=== PATIENT | male | born 1950 | race Caucasian/White ===

== ENCOUNTER 2016-07-29 03:33 | Emergency (ER) | payer OTHER ==
[~2016-07-29] VITALS: Ht 690.8 cm; Wt 90.7 kg
[~2016-07-29 03:33] MED LIST: ADVAIR 250/501 EA INH; ALLOPURINOL300 MG PO; AMBIEN10 M1 PO; ANUSOL HC30 GM PO; ANUSOL-HC25 MG RC; BP MED; CEFTIN500 MG PO; COLCHICINE0.5 MG PO; COLCRYS0.6 MG PO; CYCLOBENZAPRINE10 MG PO; DICLOFENAC POTA50 MG PO; DYAZIDE 25 MG-31 CAP PO; EC NAPROSYN500 MG PO; ESIDREX,ORETI12.5 MG PO; FELODIPINE5 MG PO; FERROUS SULFAT324 MG PO; FLAGYL500 MG PO; FOLIC ACID1 MG PO; HYDROCODONE BIT1 T11 PO; KEFLEX500 MG PO; LASIX40 MG PO; LISINOPRIL/HCTZ1 TA1 PO; LOMOTIL 0.025 M1 TA1 PO; LOPID600 MG PO; MULTIVITAMIN1 CTB PO; PREDNISONE10 MG PO; PRILOSEC20 MG PO; SINGULAIR10 MG PO; VICODIN 5/500 505 MG PO; VOLTAREN50 M1 PO; Vicodin 5/500 505 MG PO; ZESTRIL,PRINIVI20 MG PO
[2016-07-29] MEDS ORDERED: NAPROSYN500 MG PO (04:55)
== END 2016-07-29 04:59 | disposition home or self-care (01) ==
LOC: ED 03:33
DX: M19.90 Unspecified osteoarthritis, unspecified site (principal); Z88.5 Allergy status to narcotic agent; Z88.6 Allergy status to analgesic agent; Z79.899 Other long term (current) drug therapy; Z96.642 Presence of left artificial hip joint

== ENCOUNTER 2016-08-13 11:25 | Emergency (ER) | payer OTHER ==
[~2016-08-13] VITALS: Ht 182.8 cm; Wt 90.7 kg
[~2016-08-13 11:25] MED LIST changes: +NAPROSYN500 MG PO; +PRILOSEC20 M1 PO; -PRILOSEC20 MG PO
[2016-08-13] MEDS ORDERED: ZESTRIL20 MG PO (11:32)
[2016-08-13] MEDS ORDERED: VENTOLIN H0.09 MG/AC INH (11:33)
[2016-08-13] MEDS ORDERED: VENTOLIN 02.5 MG/3 M INH (11:34)
[2016-08-13] MEDS ORDERED: VIBRAMYCIN100 MG PO (12:56)
[2016-08-13] MEDS ORDERED: PREDNISONE10 MG PO (12:56)
== END 2016-08-13 13:08 | disposition home or self-care (01) ==
LOC: ED 11:25
DX: J44.1 Chronic obstructive pulmonary disease with (acute) exacerbation (principal); M19.90 Unspecified osteoarthritis, unspecified site; Z88.6 Allergy status to analgesic agent; Z79.899 Other long term (current) drug therapy

== ENCOUNTER → 2016-09-04 | Outpatient (CLI) | payer OTHER ==
[~2016-09-04] MED LIST changes: +VENTOLIN 02.5 MG/3 M INH; +VENTOLIN H0.09 MG/AC INH; +VIBRAMYCIN100 MG PO; +ZESTRIL20 MG PO
== END | disposition home or self-care (01) ==
LOC: CT 08-31 13:00 → LAB 10:14 → CT 11:00
PROVIDERS: Internal Medicine Critical Care Medicine
DX: J44.9 Chronic obstructive pulmonary disease, unspecified (principal); R91.8 Other nonspecific abnormal finding of lung field; R06.02 Shortness of breath; R05 Cough; Z87.891 Personal history of nicotine dependence

== ENCOUNTER → 2016-09-11 | Day surgery (SDC) | payer OTHER ==
[~2016-09-11] VITALS: Ht 182.8 cm; Wt 88.5 kg
--- NOTE | ~2016-09-11 | PROC NOTE ---
[place], [place] PROCEDURE NOTE NAME: ZOLTAN BETANCOURT UNIT #: [id number] ROOM: DOCTOR: ELVIE SORIANO MD,PABLO BIRTHDATE: [birth year] DOS: 09/11/2016 PREOPERATIVE DIAGNOSIS: Left upper lung mass. POSTOPERATIVE DIAGNOSIS: Left upper lung mass. PROCEDURE: Fiberoptic bronchoscopy with transbronchial biopsy of the left upper lung mass. PROCEDURE DESCRIPTION: Informed consent obtained from the patient. The patient brought to the OR and placed in supine position. Conscious sedation was administered by the Anesthesia Department. After achieving appropriate sedation, airway introduced into the mouth. Bronchoscope advanced into the airway into laryngeal area. Epiglottis and vocal cords were seen. The vocal cords moving symmetrically with movements. The bronchoscope advanced through the vocal cord. The tracheal lumen noted moderate amount of mucoid secretion, which was suctioned out the fareed level. The fareed noted sharp. Left upper, lower and lingular bronchial openings were identified. Right upper, right middle, right lower lobe bronchi were also examined. Moderate amount of mucus impaction noted for this patient, which had been suctioned out with the help of normal saline wash without any difficulty. There were no endobronchial obstructive lesions. With the help of fluoroscopy, the patient's left upper lung biopsy of the procedure subsegment was completed without any complications. There was not much blood loss. The procedure was completed without difficulty. Postoperative findings will be discussed with the patient as an outpatient. PABLO BERMEO MD CM:PROCNOTE:PROCEDURE NOTE [id number] PABLO SORIANO MD
[2016-09-11 08:15] VITALS: BP 106/75
[2016-09-11 09:25] VITALS: BP 95/78
[2016-09-11 09:40] VITALS: BP 101/64
[2016-09-11 09:53] VITALS: BP 93/49
[2016-09-12 15:09] LABS: ACID FAST SPEC PROCESSING Concentration (.)
== END | disposition home or self-care (01) ==
LOC: SDC 09-08 11:45
PROVIDERS: Internal Medicine Critical Care Medicine
DX: R91.8 Other nonspecific abnormal finding of lung field (principal); I10 Essential (primary) hypertension; J44.9 Chronic obstructive pulmonary disease, unspecified; K21.9 Gastro-esophageal reflux disease without esophagitis; Z98.890 Other specified postprocedural states; Z88.8 Allergy status to other drugs, medicaments and biological substances; Z86.14 Personal history of Methicillin resistant Staphylococcus aureus infection; M10.9 Gout, unspecified; Z82.49 Family history of ischemic heart disease and other diseases of the circulatory system

== ENCOUNTER → 2016-09-19 | Outpatient (CLI) | payer OTHER ==
[2016-09-19] VITALS (7 sets, daily range): BP systolic 93–103; BP diastolic 65–74
[2016-09-19 12:42] LABS: INTERNATIONAL NORM RATIO 1.1 (2.0-3.5); PROTHROMBIN TIME 11.9 SECONDS (9.0-12.4)
== END | disposition home or self-care (01) ==
LOC: EDSTATUS 13:00 → SDC 13:00
PROVIDERS: Internal Medicine Critical Care Medicine
DX: R91.8 Other nonspecific abnormal finding of lung field (principal); M79.89 Other specified soft tissue disorders; J84.10 Pulmonary fibrosis, unspecified; I96 Gangrene, not elsewhere classified; K21.9 Gastro-esophageal reflux disease without esophagitis; K29.50 Unspecified chronic gastritis without bleeding; L98.499 Non-pressure chronic ulcer of skin of other sites with unspecified severity; M16.12 Unilateral primary osteoarthritis, left hip; M87.9 Osteonecrosis, unspecified

== ENCOUNTER → 2016-10-02 | Outpatient (CLI) | payer OTHER ==
[2016-10-03 06:10] LABS: IMMUNOGLOBULIN IgE 002170 206 IU/mL (0-100)
[2016-10-03 16:11] LABS: ANGIOTENSIN-CONVERTING ENZYME 4 U/L (14-82)
[2016-10-04 00:04] LABS: IGG SUBCLASS 1 862 mg/dL (248-810); IGG SUBCLASS 2 480 mg/dL (130-555); IGG SUBCLASS 3 176 mg/dL (15-102); IGG SUBCLASS 4 174 mg/dL (2-96)
== END | disposition home or self-care (01) ==
LOC: LAB 09:59
PROVIDERS: Internal Medicine Critical Care Medicine
DX: J84.9 Interstitial pulmonary disease, unspecified (principal)

== ENCOUNTER → 2016-10-06 | Outpatient (CLI) | payer OTHER ==
[2016-10-07 08:10] LABS: RHEUMATOID ARTHRITIS FACTOR 21.1 IU/mL (0.0-13.9)
[2016-10-07 09:06] LABS: IMMUNOGLOBULIN IgE 002170 200 IU/mL (0-100)
[2016-10-09 14:07] LABS: IGG SUBCLASS 1 831 mg/dL (248-810); IGG SUBCLASS 2 451 mg/dL (130-555); IGG SUBCLASS 3 154 mg/dL (15-102); IGG SUBCLASS 4 179 mg/dL (2-96)
[2016-10-09 16:11] LABS: ANGIOTENSIN-CONVERTING ENZYME 6 U/L (14-82)
[2016-10-09 22:05] LABS: BLASTOMYCES ANTIBODY 164293 Negative (Neg:<1:1)
== END | disposition home or self-care (01) ==
LOC: LAB 07:42
PROVIDERS: Internal Medicine Critical Care Medicine
DX: J84.9 Interstitial pulmonary disease, unspecified (principal)

== ENCOUNTER → 2016-11-03 | Outpatient (CLI) | payer OTHER ==
[2016-11-03 07:55] LABS: BASO % 0.4 % (0.0-1.0); EOS # 0.4 10*3/uL (0.0-0.4); EOS % 4.6 % (1.0-4.0); HEMATOCRIT 29.6 % (42.0-52.0); HEMOGLOBIN 8.8 g/dl (14.0-18.0); LYMPH # 1.3 10*3/uL (1.3-4.4); LYMPH % 14.4 % (27.0-41.0); MEAN CELL VOLUME 91.9 fl (80.0-94.0); MEAN CORPUSCULAR HGB 27.3 pg (27.0-31.0); MEAN CORPUSCULAR HGB CONC 29.7 g/dl (33.0-37.0); MEAN PLATELET VOLUME 10.4 fl (9.6-12.3); MONO % 10.3 % (3.0-9.0); NEUT # 6.5 10*3/uL (2.3-7.9); NEUT % 69.8 % (47.0-73.0); PLATELET COUNT AUTOMATED 400 10*3/uL (130-400); RED BLOOD COUNT 3.22 10*6/uL (4.50-5.90); RED CELL DISTRI WIDTH 14.9 % (0-14.5); WHITE BLOOD COUNT 9.3 10*3/uL (4.8-10.8)
[2016-11-03 08:09] LABS: BILIRUBIN NEGATIVE (NEGATIVE); BLOOD TRACE-LYSED (NEGATIVE); CLARITY CLEAR (CLEAR); COLOR YELLOW (YELLOW); GLUCOSE NEGATIVE (NEGATIVE); KETONE NEGATIVE (NEGATIVE); LEUKO ESTERASE NEGATIVE (NEGATIVE); NITRITE NEGATIVE (NEGATIVE); PH 5.5 (5.0-9.0); SPECIFIC GRAVITY 1.015 (1.005-1.030); UROBILINOGEN 0.2 E.U./dl (0.2-1.0)
[2016-11-03 08:35] LABS: ALBUMIN 2.5 gm/dl (3.1-4.5); CREATININE 4.05 mg/dL (0.70-1.30); MAGNESIUM 2.6 mg/dL (1.5-2.1); POTASSIUM 5.8 mmol/L (3.5-5.1); URIC ACID 6.5 mg/dL (3.5-7.2)
[2016-11-03 09:25] LABS: VITAMIN D, 25-HYDROXY 39.3 ng/mL (30-100)
[2016-11-03 09:33] LABS: BACTERIA 2+
== END | disposition home or self-care (01) ==
LOC: LAB 07:30
PROVIDERS: Internal Medicine Nephrology
DX: N18.3 Chronic kidney disease, stage 3 (moderate) (principal); N25.81 Secondary hyperparathyroidism of renal origin; M10.9 Gout, unspecified

== ENCOUNTER → 2016-12-25 | Outpatient (CLI) | payer OTHER ==
[2016-12-25 08:34] LABS: BILIRUBIN NEGATIVE (NEGATIVE); BLOOD TRACE-INTACT (NEGATIVE); CLARITY CLEAR (CLEAR); COLOR YELLOW (YELLOW); GLUCOSE NEGATIVE (NEGATIVE); KETONE NEGATIVE (NEGATIVE); LEUKO ESTERASE NEGATIVE (NEGATIVE); NITRITE NEGATIVE (NEGATIVE); PH 5.5 (5.0-9.0); SPECIFIC GRAVITY 1.015 (1.005-1.030); UROBILINOGEN 0.2 E.U./dl (0.2-1.0)
[2016-12-25 08:42] LABS: BASO % 0.3 % (0.0-1.0); EOS # 0.6 10*3/uL (0.0-0.4); EOS % 5.9 % (1.0-4.0); HEMATOCRIT 27.9 % (42.0-52.0); HEMOGLOBIN 8.4 g/dl (14.0-18.0); LYMPH # 1.5 10*3/uL (1.3-4.4); MEAN CELL VOLUME 89.4 fl (80.0-94.0); MEAN CORPUSCULAR HGB 26.9 pg (27.0-31.0); MEAN CORPUSCULAR HGB CONC 30.1 g/dl (33.0-37.0); MEAN PLATELET VOLUME 9.7 fl (9.6-12.3); MONO # 1.1 10*3/uL (0.1-1.0); MONO % 10.3 % (3.0-9.0); NEUT # 7.5 10*3/uL (2.3-7.9); NEUT % 68.9 % (47.0-73.0); PLATELET COUNT AUTOMATED 566 10*3/uL (130-400); RED BLOOD COUNT 3.12 10*6/uL (4.50-5.90); RED CELL DISTRI WIDTH 15.9 % (0-14.5); WHITE BLOOD COUNT 10.9 10*3/uL (4.8-10.8)
[2016-12-25 08:47] LABS: BACTERIA TRACE; COARSE GRANULAR CAST 0-2; MUCOUS TRACE
[2016-12-25 09:16] LABS: ALBUMIN 2.6 gm/dl (3.1-4.5); POTASSIUM 3.9 mmol/L (3.5-5.1)
[2016-12-25 09:18] LABS: CREATININE 2.29 mg/dL (0.70-1.30); PHOSPHOROUS 2.6 mg/dL (2.5-4.9)
[2016-12-25 12:32] LABS: PTH INTACT < 5.5 pg/mL (14.0-72.0)
== END | disposition home or self-care (01) ==
LOC: LAB 08:11
PROVIDERS: Internal Medicine Nephrology
DX: N18.3 Chronic kidney disease, stage 3 (moderate) (principal); N25.81 Secondary hyperparathyroidism of renal origin; M10.9 Gout, unspecified; Z79.899 Other long term (current) drug therapy

== ENCOUNTER → 2017-01-04 | Day surgery (SDC) | payer OTHER ==
[2017-01-03 09:16] LABS: BILIRUBIN NEGATIVE (NEGATIVE); BLOOD TRACE-INTACT (NEGATIVE); CLARITY CLEAR (CLEAR); COLOR YELLOW (YELLOW); GLUCOSE NEGATIVE (NEGATIVE); KETONE NEGATIVE (NEGATIVE); LEUKO ESTERASE NEGATIVE (NEGATIVE); NITRITE NEGATIVE (NEGATIVE); SPECIFIC GRAVITY 1.015 (1.005-1.030); UROBILINOGEN 0.2 E.U./dl (0.2-1.0)
[2017-01-03 09:17] LABS: BASO % 0.3 % (0.0-1.0); EOS # 0.2 10*3/uL (0.0-0.4); EOS % 1.8 % (1.0-4.0); HEMATOCRIT 28.6 % (42.0-52.0); HEMOGLOBIN 8.5 g/dl (14.0-18.0); LYMPH % 9.4 % (27.0-41.0); MEAN CELL VOLUME 89.7 fl (80.0-94.0); MEAN CORPUSCULAR HGB 26.6 pg (27.0-31.0); MEAN CORPUSCULAR HGB CONC 29.7 g/dl (33.0-37.0); MEAN PLATELET VOLUME 9.7 fl (9.6-12.3); MONO # 0.3 10*3/uL (0.1-1.0); MONO % 2.7 % (3.0-9.0); NEUT # 9.3 10*3/uL (2.3-7.9); NEUT % 85.3 % (47.0-73.0); PLATELET COUNT AUTOMATED 474 10*3/uL (130-400); RED BLOOD COUNT 3.19 10*6/uL (4.50-5.90); RED CELL DISTRI WIDTH 15.9 % (0-14.5); WHITE BLOOD COUNT 10.9 10*3/uL (4.8-10.8)
[2017-01-03 09:41] LABS: CREATININE 2.32 mg/dL (0.70-1.30); POTASSIUM 4.6 mmol/L (3.5-5.1)
[2017-01-03 09:46] LABS: ACT PARTIAL THROMBO TIME 25.3 SECONDS (20.8-31.5); INTERNATIONAL NORM RATIO 1.1 (2.0-3.5)
[2017-01-03 10:57] LABS: BACTERIA TRACE
[~2017-01-04] VITALS: Ht 182.8 cm; Wt 78.9 kg
--- NOTE | ~2017-01-04 | PROC NOTE ---
[place], [place] PROCEDURE NOTE NAME: ZOLTAN BETANCOURT [facility] #: [id number] UNIT #: [id number] ROOM: DOCTOR: ANSLEY TOLLIVER MD BIRTHDATE: [birth year] DOS: 01/04/2017 PREOPERATIVE DIAGNOSIS: Left lung cancer. POSTOPERATIVE DIAGNOSIS: Left lung cancer. PROCEDURE: Right internal jugular MediPort placement. SURGEON: Ansley Tolliver M.D. ALLERGIST/MD: ELVIA. ANESTHESIA: MAC with local. INDICATIONS: This is a 66-year-old gentleman who is here for a MediPort placement for chemotherapy. The procedure and its complications were explained to the patient in detail preoperatively. Complications that were discussed included but were not limited to bleeding, hemothorax, pneumothorax, infection, and prolonged pain. He agreed to proceed. DESCRIPTION OF PROCEDURE: After identifying the patient, the patient was brought to the operating suite and laid in the supine position. After time-out procedure was called, IV sedation was administered and the parts were then painted and draped in the usual sterile fashion. With the help of an ultrasound machine, the right internal jugular vein was accessed with the help of Seldinger technique and a guidewire was placed. A pocket was created 2 cm below the right clavicle in a transverse fashion after injecting local anesthesia. Through this port site, the catheter was passed over an introducer to the area of the neck where the guidewire was placed. The sheath and dilator was passed over the guidewire and the guidewire was removed. Through the sheath, the catheter was placed and was found to be in good position on fluoroscopy. The catheter was then cut to size and the port was attached and fixed to the underlying chest wall with the help of Prolene sutures. Thereafter, the MediPort was accessed and it was found to have adequate flow and good blood return. The subcutaneous tissue was then approximated with the help of 3-0 Vicryl and the skin edges were approximated with the help of 4-0 Vicryl in a subcuticular fashion. Dressing was placed. The patient tolerated the procedure well and was taken to the recovery room in stable fashion. A chest x-ray was ordered for adequate placement. Dr. Ansley Tolliver, the attending surgeon, was present throughout the operating case. [place], [place] PROCEDURE NOTE NAME: ZOLTAN BETANCOURT UNIT #: [id number] ROOM: DOCTOR: ANSLEY TOLLIVER MD BIRTHDATE: [birth year] Ansley Tolliver MD CM:PROCNOTE:PROCEDURE NOTE [id number] ANSLEY TOLLIVER MD
[2017-01-04 06:45] VITALS: BP 109/80
[2017-01-04 08:13] VITALS: BP 108/67
[2017-01-04 08:28] VITALS: BP 104/72
[2017-01-04 08:43] VITALS: BP 102/68
== END | disposition home or self-care (01) ==
LOC: SDC 01-01 09:30
PROVIDERS: Surgery
DX: C34.90 Malignant neoplasm of unspecified part of unspecified bronchus or lung (principal); J44.9 Chronic obstructive pulmonary disease, unspecified; Z87.891 Personal history of nicotine dependence; Z88.8 Allergy status to other drugs, medicaments and biological substances; I10 Essential (primary) hypertension; K21.9 Gastro-esophageal reflux disease without esophagitis; Z96.642 Presence of left artificial hip joint; Z86.14 Personal history of Methicillin resistant Staphylococcus aureus infection; M10.9 Gout, unspecified; Z82.49 Family history of ischemic heart disease and other diseases of the circulatory system

== ENCOUNTER 2017-01-23 17:33 | Inpatient (IN) | payer OTHER ==
[~2017-01-23] VITALS: Ht 182.9 cm; Wt 73.7 kg
--- NOTE | ~2017-01-23 | EKG ---
[place], [place] ELECTROCARDIOGRAM REPORT NAME: ZOLTAN BETANCOURT UNIT #: [id number] ROOM: 416 DOCTOR: ELVIE SORIANO MD,PABLO BIRTHDATE: [birth year] DOS: 01/23/2017 TIME: 6:55 p.m. With assessment of symptoms of shortness of breath. Normal sinus rhythm noted. Heart rate 96 beats per minute. Poor R-wave progression of the ____ lead was noted across the chest leads. PABLO BERMEO MD CM:EKGRPT:ELECTROCARDIOGRAM REPORT [id number] PABLO SORIANO MD
--- NOTE | ~2017-01-23 | CON ---
[place], [place] REPORT OF CONSULTATION NAME: ZOLTAN BETANCOURT [facility] #: [id number] UNIT #: [id number] ROOM: 416 DOCTOR: ELVIE SORIANO MDPABLO BIRTHDATE: [birth year] DOS: 01/24/2017 CONSULTATION REQUESTED BY: Hospitalist Service. REASON FOR CONSULTATION: For assessment of postobstructive pneumonia. HISTORY OF PRESENT ILLNESS: This is a 66-year-old white male who was very well known to me. The patient has established, diagnosed with large necrotic mass in the left upper lung as squamous cell cancer on 12/11/2016. He has been assessed by Dr. Ellis. The patient noted nonsurgical candidate because of advanced emphysema. The patient had chronic hypoxic respiratory failure and being treated with chemotherapy. He was told by Dr. Ellis for the patient to come to the hospital. The patient has been noted with anemia to get blood transfusion. He came into the hospital. The patient has been admitted to the hospital for the medical management of anemia. The patient was also described with finding of a postobstructive pneumonia. He does have symptoms of chronic cough with intermittent sputum expectoration yellowish in color, which was noted, unchanged in frequency and intensity. He denies any symptoms of acute shortness of breath. The patient does have symptoms of chronic shortness breath that occurs with exertion. He denies any symptoms of wheezing. Denies any symptoms of acute chest pain. There were no symptoms of hemoptysis. REVIEW OF SYSTEMS: CONSTITUTIONAL: He does have symptoms of fatigue and tiredness without symptoms, fever or chills. EYES: Denies any burning, redness, or tenderness. EARS, NOSE, THROAT SYMPTOMS: Denies sore throat, hoarseness, otalgia, postnasal drainage or epistaxis. CARDIOVASCULAR: Denies angina pain, edema or pain of the lower extremities. GASTROINTESTINAL: Dysphagia, nausea, vomiting, diarrhea, abdominal pain, hematemesis, melena, or hematochezia. GENITOURINARY SYMPTOMS: Dysuria, suprapubic pain, hematuria. MUSCULOSKELETAL: Acute joint pain, redness, or tenderness. SKIN: Denies lesions or rashes. CENTRAL NERVOUS SYSTEM: Denies dizziness, headache, diplopia, syncopal episodes. Remaining systems were reviewed and they were noted all negative. PAST MEDICAL HISTORY: 1. Chronic obstructive pulmonary disease/centrilobular emphysema which are noted severe diagnosis 08/22/2016. 2. History of bronchial asthma, uncomplicated moderate persistent severity. 3. Chronic hypoxic respiratory failure. 4. 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 5. History of osteoarthritis. 6. History of essential hypertension. PAST SURGICAL HISTORY: [place], [place] REPORT OF CONSULTATION NAME: ZOLTAN BETANCOURT UNIT #: [id number] ROOM: [facility] DOCTOR: PABLO FRANK MD BIRTHDATE: [birth year] 1. Fiberoptic bronchoscopy that was done on 10/2016. Bronchoscopy was done 09/11/2016. 2. CT-guided needle aspiration biopsy initially noted nondiagnostic 09/19/2016. Repeat biopsy 12/08/2016. The patient established a diagnosis of squamous cell lung cancer. 3. Right MediPort insertion for chemotherapy. SOCIAL HISTORY: The patient is , has 4 children. Denies history of alcohol use, illicit drug use. He has been noted history of tobacco usage of 18 years of 1.5 pack of cigarettes per day until 2001. FAMILY HISTORY: Father at the age of 8383 years old from complication of myocardial infarction. Mother at 71 years old from complications of acute stroke. HOME MEDICATIONS: Which were listed on admission as use of allopurinol, ferrous sulfate, Advair 250/50, gemfibrozil, Singulair, multivitamin, omeprazole, albuterol sulfate with the nebulizer use as well oxygen supplementation 4 liter nasal cannula. DRUG ALLERGY HISTORY: Noted as allergy. 1. MORPHINE SULFATE. 2. TRAMADOL. PHYSICAL EXAMINATION: GENERAL: This is a 66-year-old white male, currently comfortably resting on the bed without any acute distress. Height of 6 feet, weight of 162 pounds, BMI 22. VITAL SIGNS: The patient shows a normal temperature since admission in the last 24 hour, respiratory rate of 18-20, heart rate of 189, blood pressure 128/80-116/79. HEENT: Examination shows head was atraumatic. Eyes nonicterus. NECK: Supple. CARDIOVASCULAR: S1, S2 is audible. LUNGS: The patient noted moderate decreased breath sounds without any wheeze or crackle. Breaths are noted decreased more on the left than the right side. ABDOMEN: Soft, flat, nontender, bowel sounds present. EXTREMITIES: No edema, clubbing, cyanosis. CENTRAL NERVOUS SYSTEM: Cranial nerves 2-12 intact. No focal deficit. MUSCULOSKELETAL: No deformities. SKIN: No lesions or rashes. LABORATORY DATA: The CBC that was done on 01/23/2017, WBC count 6.6, hemoglobin 6.5, hematocrit 20.6, platelet count of 941,000. CBC on the 4th, WBC count normal, hemoglobin 6.5, hematocrit 20.6, platelet count 751,000. CBC this morning: WBC count of 4000, hemoglobin 7.1, hematocrit 22.3, platelet count 666,000. After the packed RBC blood transfusion, which was given yesterday of 1 pack. PT/INR noted 1.2. CMP this morning, BUN 55, creatinine 3.0. Sodium 134. The CMP which were done on 01/22/2017, BUN 31, creatinine 3.23. Chest x-ray of the patient, 2-view, which was done shows evidence of mass lesion noted in the left upper lung. MediPort noted in place in the right chest. Lateral view does [place], [place] REPORT OF CONSULTATION NAME: ZOLTAN BETANCOURT UNIT #: [id number] ROOM: 416 DOCTOR[facility] BIRTH[facility]: [birth year] show the best assessment with the patient's current left upper lung mass consolidation, which appeared to have a cavitation known previously as well. The cavitation has developed as compared with the chest x-ray of 01/02/2017. IMPRESSION: 1. The patient who had been currently admitted to the hospital noted with history of chronic obstructive pulmonary disease and chronic hypoxic respiratory failure without evidence of acute exacerbation. The patient does have a clinical suspicion of current finding consistent with any pneumonia at the present time. 2. Thrombocytosis secondary to underlying malignancy was also noted. 3. Anemia of the patient most likely related to chemotherapy or other etiologies with about 1 blood transfusion appropriate increase in hemoglobin and hematocrit. 4. The patient with a history of essential hypertension as well. 5. History of bronchial asthma, uncomplicated moderate persistent stable as well. 6. Chronic cough. 7. Chronic kidney disease. History of essential hypertension managed by the nephrology services. PLAN OF TREATMENT: At this time, the patient would not require any intervention such as bronchoscopy or other intervention. If the cough remains persistent does not resolve, certainly he will benefit from therapeutic bronchoscopy later. The patient was also known with history of chronic kidney disease. The patient with stable kidney functions as well. From the pulmonary standpoint, the patient could be discharged home whenever desired from the patient after managing his hematologic issues. Outpatient assessment to be established for consideration of the bronchoscopy if necessary to be done as an outpatient. Assessment and management of the patient will discuss the primary resident. PABLO BERMEO MD CM:CONSTR:REPORT OF CONSULTATION 1214 01/24/17 1335 interface
--- NOTE | ~2017-01-23 | PR ---
[place], [place] PROGRESS NOTE NAME: ZOLTAN BETANCOURT UNIT #: [id number] ROOM: 416 DOCTOR: PABLO FRANK MD BIRTHDATE: [birth year] DOS: 01/25/2017 PULMONARY FOLLOWUP SUBJECTIVE: He has been noted comfortable at this time, still noted with a sputum expectoration, which has been noted chronic, small amount of yellow sputum containing. There were no symptoms of hemoptysis. The patient has been given blood transfusion yesterday. The hemoglobin and hematocrit was still noted decreased. OBJECTIVE: VITAL SIGNS: For the patient which has been recorded showed normal temperature, respiratory rate 18, heart rate of 109, ____ blood pressure 126/82-140/82. Pulse oxygen saturation on 2 liters nasal cannula was 99%-100% saturation. HEENT: Showed no acute change. NECK: Supple. CARDIOVASCULAR: S1, S2 audible. LUNGS: Decreased breath sounds noted partially on the left side. There were no wheezing or crackles ____. ABDOMEN: Soft, nontender. Bowel sounds present. CENTRAL NERVOUS SYSTEM: For the patient was noted without any gross focal deficit. LABORATORY DATA: CBC this morning, hemoglobin 7.3, hematocrit 22.5, WBC count was 4.5, platelet count 523,000. BMP this morning, BUN 50, creatinine 2.62. IMPRESSION: 1. Chronic kidney disease. The patient with lung cancer, which has been noted on the left side, which has been treated with chemotherapy. 2. The patient with anemia as well as the leukopenia as well, most likely to chemotherapy with blood transfusions. 3. Chronic cough for this patient, which has been noted with intermittent sputum expectoration. PLAN OF TREATMENT: Bronchoscopy planned to be done tomorrow morning, as the patient discharge as an outpatient, otherwise, be done while the patient is treated for other medical illnesses inpatient. All other supportive therapy, plan of management and care. Usual treatment and other therapies. [place], [place] PROGRESS NOTE NAME: ZOLTAN BETANCOURT UNIT #: [id number] ROOM: 416 DOCTOR: PABLO FRANK MD BIRTHDATE: [birth year] PABLO BERMEO MD CM:JACEK [id number] PABLO SORIANO MD 01/25/17 1613 interface
[2017-01-23 17:39] VITALS: BP 107/73
--- NOTE | 2017-01-23 19:45 | NUR ---
CONTACTED DR. HERRERA ON TWO OTHER PATIENTS, WHILE SPEAKING TO HIM, I STATED I WOULD BE RECEIVING THIS PATIENT, I ASKED IF PATIENT IS GOING TO RECEIVE BLOOD AND HE STATED ONE UNIT THAT WILL BE STARTED IN ER.
[2017-01-23 20:02] VITALS: BP 116/79
[2017-01-23 20:10] VITALS: BP 115/82
--- NOTE | 2017-01-23 20:14 | NUR ---
VITALS CHARTED FOR 2001 WERE DONE AY 195
[2017-01-23 20:30] VITALS: BP 124/82
--- NOTE | 2017-01-23 20:30 | NUR ---
A 66, admitted to 4E, under the services of SULAIMAN Martinez DO with a diagnosis of ABNORMAL LABS, ANEMIA. Chief complaint is LOW H&H. Patient arrived via ambulatory from ER. Monitor applied. Initial assessment completed. Vital signs taken and recorded. SULAIMAN MARTINEZ DO notified of admission to the unit. Orders received. See assessment for past medical history, medications and allergies. Patient and/or family oriented to unit. [facility] visitation policy reviewed. Clothing/patient valuable form completed. ZEESHAN ANNE
--- NOTE | 2017-01-23 23:46 | NUR ---
ASSUMED CARE OF PATIENT AT THIS TIME. BOLUS RUNNING AT 999 ML/HR. PATIENT DENIES ANY PAIN/SOB AT THIS TIME. WILL CONTINUE TO MONITOR. CALL LIGHT LEFT WITHIN REACH.
[2017-01-24] VITALS (12 sets, daily range): BP systolic 109–140; BP diastolic 67–91
--- NOTE | 2017-01-24 03:16 | NUR ---
PATIENT ASLEEP IN BED AT THIS TIME. RESPIRATIONS EASY. NO S/S OF DISTRESS NOTED. ON 3L NC. WILL MONITOR PATIENT. CALL LIGHT LEFT IN REACH.
[2017-01-24 06:30] LABS: ALBUMIN 2.1 gm/dl (3.1-4.5); BASO % 0.2 % (0.0-1.0); FREE T4 1.23 ng/dl (0.76-1.46); HEMATOCRIT 22.3 % (42.0-52.0); HEMOGLOBIN 7.1 g/dl (14.0-18.0); LYMPH # 0.5 10*3/uL (1.3-4.4); LYMPH % 12.9 % (27.0-41.0); MEAN CELL VOLUME 83.8 fl (80.0-94.0); MEAN CORPUSCULAR HGB 26.7 pg (27.0-31.0); MEAN CORPUSCULAR HGB CONC 31.8 g/dl (33.0-37.0); MEAN PLATELET VOLUME 9.8 fl (9.6-12.3); MONO # 0.2 10*3/uL (0.1-1.0); MONO % 5.5 % (3.0-9.0); NEUT # 3.2 10*3/uL (2.3-7.9); NEUT % 80.7 % (47.0-73.0); NUCLEATED RED BLOOD CELL 0.5 % (0.0-0.0); PHOSPHOROUS 4.9 mg/dL (2.5-4.9); PLATELET COUNT AUTOMATED 666 10*3/uL (130-400); POTASSIUM 4.5 mmol/L (3.5-5.1); RED BLOOD COUNT 2.66 10*6/uL (4.50-5.90)
[2017-01-24 06:35] LABS: THYROID STIM HORMONE (HS) 2.35 uIU/ml (0.358-4.75)
[2017-01-24 06:44] LABS: INTERNATIONAL NORM RATIO 1.2 (2.0-3.5)
--- NOTE | 2017-01-24 08:30 | NUR ---
Conveyor Line Battery Charger in to talk to patient. Patient states lives at HOME with HIS FIANCE. There are 3 steps in the home. Physician: DR SCHNEIDER Pharmacy: [facility] Home health services: NONE Patient's level of ADLs: MINIMAL ASSIST Patient has working utilities: YES DME: [employer] [facility] Follow-up physician's appointment after d/c: WILL BE MADE PRIOR TO DC Does patient want to access PORTAL?: Discharge plan HOME. JERRY FLORIAN
[2017-01-24 08:39] LABS: VITAMIN D, 25-HYDROXY 33.3 ng/mL (30-100)
--- NOTE | 2017-01-24 08:40 | NUR ---
PT RESTING IN BED. RESP-EASY AND REGUALR. OXYGEN IN USE. IVF INFUSING WITH NO PROBLEM. NO C/O AT THIS TIME. CALL LIGHT IN REACH. SEE SHIFT ASSESSMENT.
--- NOTE | 2017-01-24 08:53 | NUR ---
CALLED DR. BERMEO AWARE OF CONSULT. NO NEW ORDERS.
--- NOTE | 2017-01-24 12:30 | NUR ---
RESTING IN BED. IVF INFUSING WITH NO PROBLEM. CALL LIGHT IN REACH.
[2017-01-24 13:11] LABS: HEMATOCRIT 20.3 % (42.0-52.0); HEMOGLOBIN 6.6 g/dl (14.0-18.0)
--- NOTE | 2017-01-24 16:20 | NUR ---
PT RESTING IN BED. RESP-EASY AND REGULAR. IVF INFUSING WITH NO PROBLEM. CALL LIGHT IN REACH. SEE SHIFT ASSESSMENT.
--- NOTE | 2017-01-24 17:10 | NUR ---
IV BLOOD INFUSING WITH NO PROBLEM. VSS. NO C/O AT THIS TIME. CALL LIGHT IN [facility].
--- NOTE | 2017-01-24 18:00 | NUR ---
RESTING IN BED EATING DINNER. NO C/O AT THIS TIME. TOLERATING BLOOD WITH NO PROBLEM. CALL LIGHT IN REACH.
--- NOTE | 2017-01-24 20:44 | NUR ---
IN TO SEE PT. TO VIEW BLOOD PRODUCT AT THIS TIME IN ANTICIPATION OF IT'S COMPLETION. 500 NS BAG WAS OPEN TO PT., PT. DID NOT GET FULL INFUSION OF BLOOD AT THIS TIME. WILL CALL TO NOTIFY OF SITUATION, AND TO RECEIVE FURTHER ORDERS.
--- NOTE | 2017-01-24 20:48 | NUR ---
SPOKE WITH DR. ELLIOTT AT THIS TIME REGARDING PTS. BLOOD TRANSFUSION. PER DR. ELLIOTT HE WILL DISCUSS THE SITUATION WITH DR. HERRERA AND GET BACK TO THIS NURSE WITH ORDERS.
--- NOTE | 2017-01-24 21:02 | NUR ---
DR. HERRERA AND DR. ELLIOTT ON THE FLOOR TO SEE PT. AT THIS TIME. PER DR. HERRERA WE WILL LET THE INFUSION RUN TO THE 4 HR WINDOW, AND CHECK THE H&H AFTER IT HAS FINISHED INFUSING.
--- NOTE | 2017-01-24 21:10 | NUR ---
BLOOD TRANSFUSION STOPPED AT THIS TIME. PT. ASYMPTOMATIC. T-97.5F, P-98, R-18, BP-138/82 RA MANUAL, SPO2-100.
[2017-01-24 21:47] LABS: HEMATOCRIT 22.5 % (42.0-52.0); HEMOGLOBIN 7.2 g/dl (14.0-18.0)
[2017-01-25] VITALS: BP 126/82
--- NOTE | 2017-01-25 01:51 | NUR ---
NELLY COMPLETED AT THIS TIME FOR INCOMPLETE INFUSION OF BLOOD PRODUCT. NO ADVERSE EFFECTS HAVE BEEN NOTED ON THIS PT. UP TO THIS POINT. WILL CONTINUE TO MONITOR.
[2017-01-25 06:25] LABS: EOS % 0.2 % (1.0-4.0); HEMATOCRIT 22.5 % (42.0-52.0); HEMOGLOBIN 7.3 g/dl (14.0-18.0); LYMPH # 0.3 10*3/uL (1.3-4.4); LYMPH % 7.1 % (27.0-41.0); MEAN CELL VOLUME 83.6 fl (80.0-94.0); MEAN CORPUSCULAR HGB 27.1 pg (27.0-31.0); MEAN CORPUSCULAR HGB CONC 32.4 g/dl (33.0-37.0); MEAN PLATELET VOLUME 9.8 fl (9.6-12.3); MONO # 0.2 10*3/uL (0.1-1.0); NEUT % 88.3 % (47.0-73.0); PLATELET COUNT AUTOMATED 523 10*3/uL (130-400); RED BLOOD COUNT 2.69 10*6/uL (4.50-5.90); RED CELL DISTRI WIDTH 15.8 % (0-14.5); WHITE BLOOD COUNT 4.5 10*3/uL (4.8-10.8)
[2017-01-25 06:33] LABS: CREATININE 2.62 mg/dL (0.70-1.30); POTASSIUM 4.8 mmol/L (3.5-5.1)
--- NOTE | 2017-01-25 07:30 | NUR ---
ASSUMED CARE OF PT AT THIS TIME, RESPS EASY AND NONLABORED WITH NO S/S OF DISTRESS CALL LIGHT WITH IN REACH
[2017-01-25 08:00] VITALS: BP 140/78
--- NOTE | 2017-01-25 11:22 | NUR ---
Discharge instructions reviewed with patient/family. Patient receptive and verbalizes understanding. Follow-up care arranged. Written instructions given to patient/family. LOU MCKEON
== END 2017-01-25 11:22 | disposition home or self-care (01) | DRG 871 ==
LOC: ED 17:33 → 4E 18:47 → EDHOLD 18:47 → 4E 19:02
PROVIDERS: Family Medicine; Student in an Organized Health Care Education/Training Program; ADMIT Student in an Organized Health Care Education/Training Program
PROC: 30233N1 Transfusion of Nonautologous Red Blood Cells into Peripheral Vein, Percutaneous Approach (ICD-10-PCS; principal; 2017-01-23)
DX: A41.9 Sepsis, unspecified organism (principal); N17.0 Acute kidney failure with tubular necrosis; E43 Unspecified severe protein-calorie malnutrition; J96.11 Chronic respiratory failure with hypoxia; J18.8 Other pneumonia, unspecified organism; N18.4 Chronic kidney disease, stage 4 (severe); Z99.81 Dependence on supplemental oxygen; C34.12 Malignant neoplasm of upper lobe, left bronchus or lung; D47.3 Essential (hemorrhagic) thrombocythemia; E87.1 Hypo-osmolality and hyponatremia; J44.9 Chronic obstructive pulmonary disease, unspecified; Z96.642 Presence of left artificial hip joint; D64.9 Anemia, unspecified; M10.9 Gout, unspecified; M19.90 Unspecified osteoarthritis, unspecified site; I12.9 Hypertensive chronic kidney disease with stage 1 through stage 4 chronic kidney disease, or unspecified chronic kidney disease; Z68.21 Body mass index [BMI] 21.0-21.9, adult; Z92.21 Personal history of antineoplastic chemotherapy; Z88.5 Allergy status to narcotic agent; Z79.899 Other long term (current) drug therapy; Z82.49 Family history of ischemic heart disease and other diseases of the circulatory system; Z87.891 Personal history of nicotine dependence; Z82.3 Family history of stroke; J45.40 Moderate persistent asthma, uncomplicated

== ENCOUNTER 2017-01-29 21:11 | Inpatient (IN) | payer OTHER ==
[~2017-01-29] VITALS: Ht 182.9 cm; Wt 69.7 kg
--- NOTE | ~2017-01-29 | CON ---
[place], [place] REPORT OF CONSULTATION NAME: [facility]OL[facility]AN BETANCOURT [id number] UNIT #: [id number] ROOM: [facility] DOCTOR: RAINER CRISTOBAL MD BIRTHDATE: [birth year] DOS: 01/30/2017 HISTORY OF PRESENT ILLNESS: The patient is a pleasant 66-year-old [place] gentleman with a recently diagnosed lung cancer, got his chemotherapy. Yesterday, he had been feeling good. While at home, he became confused and lethargic. EMS was called and the patient was noted to have chills, then he was lethargic, also had incontinent of stools. As per the EMS team with a temperature of 103.4. Subsequently, he was admitted for further evaluation and management. PAST MEDICAL HISTORY: Significant for recently diagnosed lung cancer, arthritis, CKD, gout, hypertension, hyponatremia, leukopenia, protein-calorie malnutrition, severe anemia, shortness of breath, tachycardia. PAST SURGICAL HISTORY: Bronchoscopy. SOCIAL HISTORY: No smoking, drinking, or drug abuse. He was a former smoker. FAMILY HISTORY: Mother at age 60 of myocardial infarction. ALLERGIES: TO MORPHINE AND TRAMADOL. MEDICATIONS: Albuterol sulfate, allopurinol, colchicine, felodipine, ferrous sulfate, folic acid, gemfibrozil, ____. PHYSICAL EXAMINATION: GENERAL: This pleasant gentleman in no apparent distress. My new male patient. VITAL SIGNS: Stable. He is afebrile. LABORATORY DATA: EGFR of 31, sodium 142, potassium 5.1, chloride 110, uric acid 5.0, SGPT 55, SGOT 63. White count of 3.4, hemoglobin of 7.8, hematocrit 24.7, platelet count of 131,000. ASSESSMENT: 1. Possible sepsis. 2. History of recently diagnosed lung cancer. 3. Chronic kidney disease. 4. Anemia of neoplastic disorder. 5. Mild neutropenia. PLAN: I had detailed discussion with the patient. The patient was started on broad-spectrum antibiotics, blood cultures growth factors. If the hemoglobin and hematocrit drops further, then transfusion. We will keep a close watch at this time. Had had detailed discussion with the patient about it, seemed to understand it. Ample time was given to the patient to ask me questions. Thanks for consulting me to participate in the care of this interesting patient. [place], [place] REPORT OF CONSULTATION NAME: ZOLTAN BETANCOURT UNIT #: [id number] ROOM: [facility] DOCTOR: USSU MANN,RAINER BIRTHDATE: [birth year] RAINER CRISTOBAL MD CM:CONSTR:REPORT OF CONSULTATION 1547 01/30/17 1755 interface
--- NOTE | ~2017-01-29 | PR ---
[place], [place] PROGRESS NOTE NAME: ZOLTAN BETANCOURT [facility] #: [id number] UNIT #: [id number] ROOM: [facility] DOCTOR: RAINER CRISTOBAL MD BIRTHDATE: [birth year] DOS: 01/31/2017 SUBJECTIVE: The patient is doing better. He is awake, alert and responsive. REVIEW OF SYSTEMS HEENT: No trouble swallowing. No double vision. No loss of vision. No pain. ENT AND RESPIRATORY: No wheeze. No change in voice. No cough. No shortness of breath. No coughing up blood. No epistaxis. CARDIOLOGIC: No chest pain. No dizziness. No irregular heartbeat. No leg edema. No palpitations. No shortness of breath. HEMATOLOGIC AND LYMPH: No past transfusion. No fatigue. No loss of appetite. No easy bruising. GASTROENEROLOGIC: No change in bowel habits. No vomiting blood. No abdominal cramping. No nausea. No vomiting. No diarrhea. No constipation. No blood in stool. MALE REPRODUCTIVE: No testicular pain. No penile discharge. MUSCULOSKELETAL: No back pain. No muscle pain or weakness. No tingling/numbness. UROLOGIC: No pain with urination. No difficulty urinating. No frequent urination. NEUROLOGIC: No burning pain in feet. No trouble with coordination. No loss of consciousness. No headache. No tingling/numbness. No memory loss. PHYSICAL EXAMINATION GENERAL: He is a pleasant gentleman in no apparent distress. VITAL SIGNS: Blood pressure 90/60, respirations 18, pulse 75. HEENT: Normocephalic, atraumatic NECK AND THYROID: Supple. No JVD, thyromegaly, or lymphadenopathy. HEART: Normal S1, S2. Regular rate and rhythm. LUNGS: Clear to auscultation and percussion. ABDOMEN: Soft. Nontender, nondistended. Bowel sounds present. EXTREMITIES: Normal ROM. No clubbing. No edema. LABORATORY DATA: White count of 2.9, hemoglobin 9.2, hematocrit 28.7, platelet count of 50,000 with ANC of 2800. Sodium 141, potassium 5.2, chloride 110, bicarbonate 22, EGFR is 30. ASSESSMENT AND PLAN: 1. Pancytopenia secondary to chemotherapy. 2. Non-small cell lung cancer, undergoing chemotherapy. 3. Metabolic encephalopathy, which is improved. 4. Hypertension. PLAN: The patient is doing good at this point. We will continue growth factors. We will continue growth factors. Hemoglobin, platelet and blood transfusion on p.r.n. basis. I had a detailed discussion with the patient about it, seemed to understand it. Overall, he is doing much better. I expect the white count to decrease because of his chemotherapy. [place], [place] PROGRESS NOTE NAME: [facility] [id number] UNIT #: [id number] ROOM: [facility] DOCTOR: RAINER CRISTOBAL MD BIRTHDATE: [birth year] RAINER CRISTOBAL MD CM:PNBRYCE [id number] RAINER CRISTOBAL MD 01/31/17 1434 interface
--- NOTE | ~2017-01-29 | PR ---
[place], [place] PROGRESS NOTE NAME: [facility]ANCOURT [facility]: [id number] UNIT #: [id number] [facility] DOCTOR: RAINER CRISTOBAL MD BIRTHDATE: [birth year] DOS: 02/01/2017 SUBJECTIVE: The patient is not doing good. He is unresponsive to questions. PHYSICAL EXAMINATION: VITAL SIGNS: Blood pressure 120/74, respiration 20, pulse 98, temperature 98.4. HEENT: Normocephalic, atraumatic NECK AND THYROID: Supple. No JVD, thyromegaly, or lymphadenopathy. HEART: Normal S1, S2. Regular rate and rhythm. LUNGS: Clear to auscultation and percussion. ABDOMEN: Soft. Nontender, nondistended. Bowel sounds present. EXTREMITIES: Normal ROM. No clubbing. No edema. LABORATORY DATA: White count 2.5, hemoglobin 8.4, hematocrit 26.4, platelet count of 30,000 with ANC of 2400. ASSESSMENT: 1. Pancytopenia probably secondary to chemotherapy. 2. The patient is unresponsive. 3. Multiple twitching, not respond to commands. 4. Lung cancer. PLAN: His counts are stable. We will continue growth factors. I am unaware of the neurologic part, since we are worried about his neurologic component and I will talk to the resident about transfer him where he can be evaluated by a neurologist. We will also discuss with the family. RAINER CRISTOBAL MD CM:PNTRANS [id number] RAINER CRISTOBAL MD 02/01/171920 interface
[2017-01-29 21:11] VITALS: BP 135/88
[2017-01-29 21:28] LABS: BILIRUBIN NEGATIVE (NEGATIVE); BLOOD 1+ (NEGATIVE); CLARITY SL CLOUDY (CLEAR); COLOR YELLOW (YELLOW); GLUCOSE NEGATIVE (NEGATIVE); KETONE NEGATIVE (NEGATIVE); LEUKO ESTERASE NEGATIVE (NEGATIVE); NITRITE NEGATIVE (NEGATIVE); SPECIFIC GRAVITY 1.025 (1.005-1.030); UROBILINOGEN 0.2 E.U./dl (0.2-1.0)
[2017-01-29 21:44] LABS: BACTERIA 2+
[2017-01-29 21:52] VITALS: BP 119/73
[2017-01-29 21:56] LABS: HEMATOCRIT 26.2 % (42.0-52.0); HEMOGLOBIN 8.5 g/dl (14.0-18.0); MEAN CELL VOLUME 81.9 fl (80.0-94.0); MEAN CORPUSCULAR HGB 26.6 pg (27.0-31.0); MEAN CORPUSCULAR HGB CONC 32.4 g/dl (33.0-37.0); MEAN PLATELET VOLUME 9.7 fl (9.6-12.3); PLATELET COUNT AUTOMATED 182 10*3/uL (130-400); RED CELL DISTRI WIDTH 14.7 % (0-14.5)
[2017-01-29 22:12] LABS: ALBUMIN 2.4 gm/dl (3.1-4.5); ALKALINE PHOSPHATASE 97 U/L (45-117); BUN 40 mg/dl (7-24); CHLORIDE 104 mmol/L (98-107); CREATININE 2.11 mg/dL (0.70-1.30); POTASSIUM 5.2 mmol/L (3.5-5.1); SGOT/AST 72 IU/L (3-35); SGPT/ALT 67 U/L (12-78); SODIUM 138 mmol/L (136-145); TOTAL PROTEIN 7.9 gm/dL (6.4-8.2)
[2017-01-29 22:14] LABS: TROPONIN I < 0.015 ng/ml (<0.045)
[2017-01-29 22:17] LABS: TOTAL CELLS COUNTED 100 #CELLS
[2017-01-29 22:18] LABS: OVALOCYTES FEW; PLATELET SUFFICIENCY NORMAL (NORMAL); POLYCHROMASIA SLIGHT
[2017-01-29 22:52] VITALS: BP 118/78
[2017-01-29 23:21] VITALS: BP 116/63
[2017-01-30] VITALS (11 sets, daily range): BP systolic 111–144; BP diastolic 74–102
--- NOTE | 2017-01-30 00:57 | NUR ---
A 66, admitted to ICCU, under the services of PATRICK Tirado DO with a diagnosis of NEUTROPENIC FEVER. Chief complaint is "NOT ACTING HIMSELF" PER FAMILY. Patient arrived via stretcher from ER. Monitor applied. Initial assessment completed. Vital signs taken and recorded. PATRICK TIRADO DO notified of admission to the unit. Orders received. See assessment for past medical history, medications and allergies. Patient and/or family oriented to unit. [facility] ICCU visitation policy reviewed. Clothing/patient valuable form completed. LOU REYNA
[2017-01-30] MEDS ORDERED: ZESTORETIC 20-1 EACH PO (01:16)
[2017-01-30] MEDS ORDERED: FEROSUL325 MG PO (01:16)
[2017-01-30] MEDS ORDERED: ALLOPURINOL100 MG PO (01:17)
[2017-01-30] MEDS ORDERED: MULTIVITAMINS1 EAC6 PO (01:17)
[2017-01-30] MEDS ORDERED: COLCRYS0.6 M1 PO (01:19)
[2017-01-30] MEDS ORDERED: OMEPRAZOLE40 MG PO (01:20)
[2017-01-30] MEDS ORDERED: ONDANSETRON HYDR4 MG PO (01:20)
[2017-01-30] MEDS ORDERED: CALCIUM 500+D1 EACH PO (01:21)
[2017-01-30] MEDS ORDERED: HYDROXYZINE PAM25 M1 PO (01:22)
[2017-01-30] MEDS ORDERED: FELODIPINE2.5 MG PO (01:23)
[2017-01-30] MEDS ORDERED: INCRUSE ELLI62.5 MCG INH (01:23)
--- NOTE | 2017-01-30 01:30 | NUR ---
report given to sajan mac
--- NOTE | 2017-01-30 01:51 | NUR ---
PT IS AFEBRILE AT PRESENT. RESTING IN BED WITH HOB ELEVATED. SIDE RAILS UP X'S 2. CALL LIGHT IN REACH. IV FLUIDS CONT. ANDRES PATENT. MUCOUS MEMBRANES DRY. TAKING SIPS H20. HAS VISIBLE TREMORS OF UPPER EXTREMITIES. STATES HE IS LIKE THAT AT HOME WELL. ORAL BALANCE APPLIED TO LIPS. PULSE OX 99% ON 3L. ALERT AT PRESENT.
--- NOTE | 2017-01-30 02:49 | NUR ---
0215 PT HAVING VERY VISIBLE TREMORS. HR ELEVATED. TRYING TO GET OOB. BED ALARM INTACT. ANXIOUS. DR. HERREAR CALLED. PT TAKES VISTARIL AT HOME FOR ANXIETY. 0245 VISTARIL PO FOR ANXIETY. WILL CONT TO MONITOR.
--- NOTE | 2017-01-30 03:11 | NUR ---
MED REC UPDATED. COMPARED WITH [facility] BLOOR RECORDS IN COMPUTER.
--- NOTE | 2017-01-30 03:12 | NUR ---
PT HAS WOUND RIGHT AXILLA. SEE WOUND SCREEN. SCABBED AREA NOTED OVER [facility] MEDIPORT INSERTION SITE.
--- NOTE | 2017-01-30 04:25 | NUR ---
041O RESTLESS AND TRYING TO GET OOB. HR ELEVATED. EARLIER VISTARIL SL EFFECTIVE. RECTAL TEMP 102.3. ORAL TYLENOL GIVEN. WILL MONITOR. I AND WHEEZE NOTED. RESPIRATORY THERAPY HERE FOR TREATMENT. MOIST NON-PRODUCTIVE COUGH NOTED. ASKED IF HE WANTS INTUBATED IF NEEDED. STATES YES. DR. HERRERA HERE AND AWARE OF PT CONDITION, ORDERS RECEIVED.
--- NOTE | 2017-01-30 04:40 | NUR ---
0430 ATIVAN 1MG IV GIVEN PER ORDER. WILL MONITOR.
--- NOTE | 2017-01-30 04:59 | NUR ---
HR DOWN TO 119 AND RR 22 NOW.
[2017-01-30 06:09] LABS: ALBUMIN 2.2 gm/dl (3.1-4.5); POTASSIUM 5.1 mmol/L (3.5-5.1)
--- NOTE | 2017-01-30 06:14 | NUR ---
RESTING IN BED WITH EYES CLOSED. APPEARS TO BE SLEEPING. ORAL TEMP 98.6. HR IS NOW 105. RESP RATE IS 18. PULSE OX IS 98% ON 2L. BED ALARM INTACT. CONDITION GUARDED.
--- NOTE | 2017-01-30 06:18 | NUR ---
DR. BECCA HOPE FOR CONSULT.
[2017-01-30 06:20] LABS: CREATININE 2.12 mg/dL (0.70-1.30); FREE T4 1.34 ng/dl (0.76-1.46); THYROID STIM HORMONE (HS) 1.04 uIU/ml (0.358-4.75); TOTAL PROTEIN 6.9 gm/dL (6.4-8.2)
[2017-01-30 06:28] LABS: INTERNATIONAL NORM RATIO 1.2 (2.0-3.5)
--- NOTE | 2017-01-30 06:36 | NUR ---
DR. CRISTOBAL NOTIFIED OF CONSULT. ORDERS RECEIVED.
[2017-01-30 06:47] LABS: HEMATOCRIT 24.7 % (42.0-52.0); HEMOGLOBIN 7.8 g/dl (14.0-18.0); MEAN CORPUSCULAR HGB 26.9 pg (27.0-31.0); MEAN CORPUSCULAR HGB CONC 31.6 g/dl (33.0-37.0); MEAN PLATELET VOLUME 10.3 fl (9.6-12.3); PLATELET COUNT AUTOMATED 131 10*3/uL (130-400); RED CELL DISTRI WIDTH 15.1 % (0-14.5); WHITE BLOOD COUNT 3.4 10*3/uL (4.8-10.8)
[2017-01-30 06:57] LABS: MEAN CELL VOLUME 85.2 fl (80.0-94.0)
[2017-01-30 07:33] LABS: PLATELET SUFFICIENCY NORMAL (NORMAL); POLYCHROMASIA SLIGHT; TOTAL CELLS COUNTED 100 #CELLS
[2017-01-30 07:48] LABS: VITAMIN D, 25-HYDROXY 34.6 ng/mL (30-100)
--- NOTE | 2017-01-30 07:52 | NUR ---
Shift chart check completed.24 HR chart check completed.
--- NOTE | 2017-01-30 09:00 | NUR ---
ON ASSESSMENT PATIENT DROWSY, ABLE TO CORRECTLY SAY WHERE HE IS WHEN GIVEN MULTIPLE CHOICE. IV FLUIDS CONTINUE. ANDRES PATENT YELLOW URINE.
--- NOTE | 2017-01-30 10:43 | NUR ---
ZOLTAN BETANCOURT [id number] Please refer to the physician's history and physical for past medical history, comorbid conditions, and allergies. Diagnosis: NEUTROPENIC FEVER Sandro Score: 13,MODERATE RISK WOUND DESCRIPTIONS: Location of the wound: right axilla Thickness: Partial Size: 0.5cm x 1.5cm x 0.1cm Tunneling: none Undermining: none Sinus Tract: none Presence of Exudate: Serous Amount: None Color: Red Odor: None Periwound Skin Appearance: Normal Wound edges: approximated Pain (associated with wound): none at time of assessment How does patient state this happened? pt unable to state how this happened Patient does have mediport to right chest and area has intact scab. Surface the patient is resting on: Position Pro SKIN PREVENTION RECOMMENDATION: 1. Pressure redistribution support surface as appropriate 2. Elevate heels 3. Remove boots/TEDS every shift and reapply 4. Head of bed 30 degrees as tolerated 5. Assess nutrition and hydration 6. Manage moisture 7. Avoid the use of containment devices while in bed 8. Use absorptive products on surfaces limit layers of linens on bed 9. Turn and reposition every 1-2 hours in bed and every 1 hour in chair as tolerated 10. Weight shifts every 15 minutes while up in chair 11. Offloading with pillows or device to keep heels elevated off bed 12. Monitor skin at least every shift 13. Inspect under medical devices twice a day WOUND TREATMENT RECOMMENDATIONS: Cleanse right axilla with nss and apply sureprep to surrounding wound and hydrogel to wound bed cover with optifoam gentle.
--- NOTE | 2017-01-30 13:00 | NUR ---
Cigarette Roller in to talk to patient. Patient states lives at home with . There are 6 steps in the home. Physician: Dr. Ashley Gibson Pharmacy: [facility] Home health services: none Patient's level of ADLs: MINIMAL ASSIST Patient has working utilities: yes DME: walker, cane, oxygen, nebulizer Follow-up physician's appointment after d/c: will be made by hospitalist nurse director upon discharge Does patient want to access PORTAL?: no Discharge plan discussed with patient. He lives at home with his . He uses a walker/cane for ambulation. Discussed short term SNF and patient refuses. Discussed home health when he is discharged to home and he will think about it. When medically stable he will be discharged home. ALEJO LORD
--- NOTE | 2017-01-30 14:00 | NUR ---
Informed consent obtained from patient verbally. Patient identified by arm band. Vital signs recorded. Blood unit number [id number] verified by 2 R.N.'s, myself and Marivel Calhoun. I.V. site satisfactory. Unit #1 started at a KVO rate with Normal Saline. JOSE KAUFMAN
--- NOTE | 2017-01-30 16:05 | NUR ---
PT HAS BEEN RESTLESS, ATTEMPTING TO CLIMB OUT OF BED SAYING THAT HE HAS TO PEE. TACHYPNEIC. NO FEVER. ABG'S BEING DRAWN.
[2017-01-30 16:19] LABS: ABG BASE EXCESS -4.3 mmol/L (-2.0-2.0); ABG HCO3 22.3 mmol/l (22-26); ABG O2 SATURATION 98.2 % (95-97); ARTERIAL BLOOD GAS PCO2 51.4 mmHg (35-45); ARTERIAL BLOOD GAS PH 7.259 (7.35-7.45)
--- NOTE | 2017-01-30 16:31 | NUR ---
DR LAINEZ CALLED AND UPDATED ON PT'S RESTLESSNESS, TACHYPNEA AND TACHYCARDIA. NO TEMP ELEVATION. TRANSFUSION CONTINUES.
--- NOTE | 2017-01-30 17:02 | NUR ---
DR LAINEZ AND ANNAMARIA CAME TO SEE PT.STAT CXR DONE. AN ADDITIONAL IV SITE OBTAINED LEFT ANTECUBITAL #20. IV SOLU MEDROL 125MG GIVEN PER ORDER. IV BENADRYL 25MG PER ORDER.
[2017-01-30 17:26] LABS: ALBUMIN 2.2 gm/dl (3.1-4.5); CREATININE 2.14 mg/dL (0.70-1.30); POTASSIUM 4.7 mmol/L (3.5-5.1); TOTAL PROTEIN 7.2 gm/dL (6.4-8.2)
--- NOTE | 2017-01-30 17:39 | NUR ---
[facility] ANSWERING SERVICE NOTIFIED OF CONSULTATION. NOT RESTLESS SINCE THE IV SOLUMEDROL AND IV BENADRYL. HE SPOKE TO HIS VIA PHONE. I SPOKE TO HIS UPDATING HER ON PT CONDITION ALSO.
--- NOTE | 2017-01-30 17:43 | NUR ---
DR BENEDICT CALLED IN. INFORMED OF ELEVATED TROPONIN. REVIEWED LABS/EKG CHANGES. ORDERED AN ECHO FOR AM. NOT TO CALL HIM UNLESS TROPONINS SHOW SIGNIFICANT CHANGE. A V/Q SCAN HAS BEEN ORDERED. THE [facility] HAS CALLED IN,THE PROTOCOL IS FOR INPATIENTS TO BE DONE IN THE AM.
--- NOTE | 2017-01-30 18:47 | NUR ---
TRANSFUSION COMPLETE AT 1750. LASIX IV PER ORDER. PT HAS BEEN ASSISTED TO TRY TO GET INTO A COMFORTABLE POSITION.
--- NOTE | 2017-01-30 18:57 | NUR ---
THE ELECTRONIC ORDER SAYS FOR 2 UNITS OF PACKED CELLS IF HGB <8. A CBC ORDERED BY DR LAINEZ. WILL PASS ON TO THE NEXT SHIFT TO VERIFY IF 2ND UNIT OF PACKED CELLS TO BE GIVEN.
--- NOTE | 2017-01-30 19:28 | NUR ---
PT UNABLE TO DO DULERA...PT LETHARGIC..RN STATES HE HAD BENEDRYL AND IS DROWSY...SPO2 100% ON 3LNC PT IN NO APPARENT DISTRESS AT THIS TIME
[2017-01-30 21:02] LABS: HEMOGLOBIN 8.8 g/dl (14.0-18.0); MEAN CELL VOLUME 83.1 fl (80.0-94.0); MEAN CORPUSCULAR HGB 27.1 pg (27.0-31.0); MEAN CORPUSCULAR HGB CONC 32.6 g/dl (33.0-37.0); MEAN PLATELET VOLUME 10.4 fl (9.6-12.3); NUCLEATED RED BLOOD CELL 1.3 % (0.0-0.0); RED BLOOD COUNT 3.25 10*6/uL (4.50-5.90); RED CELL DISTRI WIDTH 14.9 % (0-14.5); WHITE BLOOD COUNT 3.1 10*3/uL (4.8-10.8)
[2017-01-30 21:03] LABS: PLATELET COUNT AUTOMATED 60 10*3/uL (130-400)
[2017-01-30 21:24] LABS: TOTAL CELLS COUNTED 100 #CELLS
[2017-01-30 21:25] LABS: PLATELET SUFFICIENCY LOW (NORMAL)
--- NOTE | 2017-01-30 23:59 | NUR ---
PT MEDICATED WITH TYLENOL PO PRN FOR LOW GRADE FEVER. PT HAS RECTAL TEMP 99.8. PREVIOUSLY HIGHER, WILL MONITOR EFFECTIVE NESS
[2017-01-31] VITALS: BP 146/102
[2017-01-31 04:00] VITALS: BP 98/69
--- NOTE | 2017-01-31 05:00 | NUR ---
PT RESTING IN BED WITH EYES CLOSED. NO S AND S OF ACUTE DISTRESS NOTED AT THIS TIME. RESPS EASY AND UNLABORED. WILL CONTINUE TO MONITOR.
[2017-01-31 05:50] LABS: HEMATOCRIT 28.7 % (42.0-52.0); HEMOGLOBIN 9.2 g/dl (14.0-18.0); MEAN CELL VOLUME 84.2 fl (80.0-94.0); MEAN CORPUSCULAR HGB CONC 32.1 g/dl (33.0-37.0); MEAN PLATELET VOLUME 10.5 fl (9.6-12.3); PLATELET COUNT AUTOMATED 50 10*3/uL (130-400); RED BLOOD COUNT 3.41 10*6/uL (4.50-5.90); RED CELL DISTRI WIDTH 15.1 % (0-14.5); WHITE BLOOD COUNT 2.9 10*3/uL (4.8-10.8)
[2017-01-31 06:09] LABS: CREATININE 2.2 mg/dL (0.70-1.30); POTASSIUM 5.2 mmol/L (3.5-5.1)
[2017-01-31 06:20] LABS: TOTAL CELLS COUNTED 100 #CELLS
[2017-01-31 06:21] LABS: PLATELET SUFFICIENCY LOW (NORMAL); POLYCHROMASIA SLIGHT; ROULEAUX SLIGHT
[2017-01-31 08:00] VITALS: BP 110/78
--- NOTE | 2017-01-31 08:44 | NUR ---
Nursing screen received and chart review completed. Patient is in ICCU with fever, increased troponins and has recently received blood. He appears medically compromised at this time. Please consider OT evaluation as needed when medically stable. Dimple Leigh OTR/l
--- NOTE | 2017-01-31 09:48 | NUR ---
Awake and alert, disoriented to place and time. To [place] for VQ. Returned to room stable. Modestayse called in and update was given.
--- NOTE | 2017-01-31 11:22 | NUR ---
Up to [facility] passed gas only. weak. awaiting transport for CT chest.
[2017-01-31 12:00] VITALS: BP 120/96
--- NOTE | 2017-01-31 12:47 | NUR ---
Dr.'s Wood and Malka in to evaulate. CT chest complete. Family in to visit. Twitching motions noted at times.
--- NOTE | 2017-01-31 14:00 | NUR ---
Automatic Glove Turner And Former in to see patient. Discussed short term SNF and patient refuses. Discussed home health when he is discharged to home and he will think about it. When medically stable he will be discharged home.
--- NOTE | 2017-01-31 14:15 | NUR ---
Dr. osullivan was notified of pt. outpt. Bronch scheduled for tommorrow w/ Dr. Biswas. OR called to establish if bronch was to be done. Cancelled for now.
[2017-01-31 16:00] VITALS: BP 105/64
[2017-01-31 20:00] VITALS: BP 122/32; BP 123/80
[2017-02-01] VITALS: BP 124/7
[2017-02-01 04:00] VITALS: BP 100/70
[2017-02-01 06:10] LABS: HEMATOCRIT 26.4 % (42.0-52.0); HEMOGLOBIN 8.4 g/dl (14.0-18.0); MEAN CELL VOLUME 84.6 fl (80.0-94.0); MEAN CORPUSCULAR HGB 26.9 pg (27.0-31.0); MEAN CORPUSCULAR HGB CONC 31.8 g/dl (33.0-37.0); MEAN PLATELET VOLUME 12.2 fl (9.6-12.3); RED BLOOD COUNT 3.12 10*6/uL (4.50-5.90); RED CELL DISTRI WIDTH 14.9 % (0-14.5); WHITE BLOOD COUNT 2.5 10*3/uL (4.8-10.8)
[2017-02-01 06:17] LABS: PLATELET COUNT AUTOMATED 30 10*3/uL (130-400)
[2017-02-01 06:35] LABS: CREATININE 2.17 mg/dL (0.70-1.30); TOTAL PROTEIN 6.6 gm/dL (6.4-8.2)
[2017-02-01 06:55] LABS: PLATELET SUFFICIENCY LOW (NORMAL); POLYCHROMASIA SLIGHT; ROULEAUX MODERATE; TOTAL CELLS COUNTED 100 #CELLS
[2017-02-01 08:00] VITALS: BP 100/68
--- NOTE | 2017-02-01 09:14 | NUR ---
0800 aWAKE AND ALERT. lEFT SIDELYING . VERY VIVID STARTLE reflex present w/ any tactile stimuli, oral clamp down pushing away and yelling no w/ attempts at oral temp. rectal temp obtained w/ assist as scooting away and slapping out w/ un co-ordinated movements. Complete bed bath given , facial shave, cheek care w/ noted appearence of scabbed lines to penile head, large hemmorhoid present . feet dry w/ crusting present on toes. Dr. Babb noted of evolving mental status changes. PERRLA . Does not obey verbal command, blank stare , constant jerking movements, Cough, gag and corneal reflex intact. CT head orderd and complete awaiting result.
--- NOTE | 2017-02-01 10:39 | NUR ---
Dr. Biswas was notified of consult.
--- NOTE | 2017-02-01 10:41 | NUR ---
Dr. Ellsworth in to [facility]. Dr. Babb spoke w/ spouse via telephone.
[2017-02-01 12:00] VITALS: BP 120/74
[2017-02-01 14:08] LABS: HEMATOCRIT 26.2 % (42.0-52.0); HEMOGLOBIN 8.5 g/dl (14.0-18.0)
--- NOTE | 2017-02-01 14:10 | NUR ---
Track Liner Operator in to see patient. Discharge plan at this time is undecided.
[2017-02-01 16:00] VITALS: BP 118/70
--- NOTE | 2017-02-01 17:13 | NUR ---
Dr. Babb was notifed of pt. refusal to consume food or fluids. orders recieved. dr. Ace was in to evaulate in lieu of progressive mental status changes. He opted to speak w/ Dr. Babb re: transfer for neuro consultation. Dr. Babb in and spoke w/ Dr. Ace and at length w/ pt. spouse re: need to transfer . Spouse agreeable . Awaiting bed assignment . Demographics faxed.
--- NOTE | 2017-02-01 18:02 | NUR ---
Oral meds not given as pt. continues to clamp down and refuse anything po.
--- NOTE | 2017-02-01 19:03 | NUR ---
IV to LW infiltrated . dc'd new IV placed to ISIDRO.
--- NOTE | 2017-02-01 19:16 | NUR ---
Nurse to nurse called to axel at [facility]. Life team to transport [phone].
[2017-02-01 20:00] VITALS: BP 117/68
--- NOTE | 2017-02-01 20:29 | NUR ---
1945 RESTING IN BED ON LEFT SIDE. HOB ELEVATED. SIDE RAILS UP X'S 2. CALL LIGHT IN REACH. DOES NOT RESPOND VERBALLY WHEN AROUSED. IV FLUIDS CONT. ANDRES PATENT AND DRAINING CLEAR YELLOW URINE. PULSE OX 97% ON 3L. GIRLFRIEND, ELYSE, CALLED IN AND UPDATED ON PT CONDITION AND PENDING TRANSFER. NO DISTRESS NOTED.
--- NOTE | 2017-02-01 21:01 | NUR ---
AMBULANCE HERE TO TRANSFER. REPORT GIVEN. , ELYSE CALLED AND INFORMED THAT PT IS LEAVING. DL ARAUZ CALLED. PT CONDITION IS GUARDED. NON VERBAL AT PRESENT. CONT TO HAVE JERKING TYPE MOVEMENTS WHEN AROUSED. STARING.
== END 2017-02-01 21:01 | disposition short-term general hospital (02) | DRG 871 ==
LOC: ED 21:11 → ICCU 23:27 → EDHOLD 23:27 → ICCU 23:47
PROVIDERS: Emergency Medicine Emergency Medical Services; Family Medicine; Internal Medicine; Internal Medicine Hematology & Oncology; Student in an Organized Health Care Education/Training Program; ADMIT Internal Medicine
PROC: 30233N1 Transfusion of Nonautologous Red Blood Cells into Peripheral Vein, Percutaneous Approach (ICD-10-PCS; principal; 2017-01-30)
DX: A41.9 Sepsis, unspecified organism (principal); E43 Unspecified severe protein-calorie malnutrition; G93.41 Metabolic encephalopathy; D61.810 Antineoplastic chemotherapy induced pancytopenia; J18.1 Lobar pneumonia, unspecified organism; D69.6 Thrombocytopenia, unspecified; N18.4 Chronic kidney disease, stage 4 (severe); E87.5 Hyperkalemia; C34.12 Malignant neoplasm of upper lobe, left bronchus or lung; J44.9 Chronic obstructive pulmonary disease, unspecified; R65.20 Severe sepsis without septic shock; Z96.642 Presence of left artificial hip joint; R50.81 Fever presenting with conditions classified elsewhere; D63.0 Anemia in neoplastic disease; R25.3 Fasciculation; R73.9 Hyperglycemia, unspecified; M19.90 Unspecified osteoarthritis, unspecified site; I12.9 Hypertensive chronic kidney disease with stage 1 through stage 4 chronic kidney disease, or unspecified chronic kidney disease; Z88.8 Allergy status to other drugs, medicaments and biological substances; Z79.899 Other long term (current) drug therapy; Z87.891 Personal history of nicotine dependence; Z68.20 Body mass index [BMI] 20.0-20.9, adult; Z82.49 Family history of ischemic heart disease and other diseases of the circulatory system; T45.1X5A Adverse effect of antineoplastic and immunosuppressive drugs, initial encounter

== ENCOUNTER 2017-03-03 13:50 | Inpatient (IN) | payer OTHER ==
[~2017-03-03] VITALS: Ht 182.9 cm; Wt 72.6 kg
[2017-03-03] VITALS (10 sets, daily range): BP systolic 78–135; BP diastolic 60–91
[~2017-03-03 13:50] MED LIST changes: +ALLOPURINOL100 MG PO; +CALCIUM 500+D1 EACH PO; +COLCRYS0.6 M1 PO; +FELODIPINE2.5 MG PO; +FEROSUL325 MG PO; +HYDROXYZINE PAM25 M1 PO; +INCRUSE ELLI62.5 MCG INH; +MULTIVITAMINS1 EAC6 PO; +OMEPRAZOLE40 MG PO; +ONDANSETRON HYDR4 MG PO; +ZESTORETIC 20-1 EACH PO
[2017-03-03] MEDS ORDERED: ARIXTRA5 MG/0.4 M SC (14:12)
[2017-03-03] MEDS ORDERED: BREO ELLIPTA 21 EACH INH (14:13)
[2017-03-03] MEDS ORDERED: ROCALTROL0.5 MC1 PO (14:13)
[2017-03-03] MEDS ORDERED: FEROSUL325 M1 PO (14:14)
[2017-03-03] MEDS ORDERED: Coumadin7.5 MG PO (14:14)
[2017-03-03] MEDS ORDERED: FELODIPINE5 MG PO (14:14)
[2017-03-03] MEDS ORDERED: SENNA8.6 MG PO (14:15)
[2017-03-03] MEDS ORDERED: FLOMAX0.4 MG PO (14:15)
[2017-03-03] MEDS ORDERED: INCRUSE ELLI62.5 MCG INH (14:16)
[2017-03-03] MEDS ORDERED: NATURE'S BLEND F1 MG PO (14:16)
[2017-03-03] MEDS ORDERED: MILK OF MA400 MG/51 PO (14:16)
[2017-03-03] MEDS ORDERED: MIRALAX119 GM PO (14:17)
[2017-03-03] MEDS ORDERED: OMEPRAZOLE40 MG PO (14:17)
[2017-03-03] MEDS ORDERED: MULTIPLE VITAM1 EAC1 PO (14:17)
[2017-03-03] MEDS ORDERED: SINGULAIR10 M1 PO (14:17)
[2017-03-03] MEDS ORDERED: PROVENTIL HFA6.7 GM INH (14:19)
[2017-03-03 14:22] LABS: HEMATOCRIT 22.2 % (42.0-52.0); HEMOGLOBIN 6.9 g/dl (14.0-18.0); MEAN CELL VOLUME 90.2 fl (80.0-94.0); MEAN CORPUSCULAR HGB CONC 31.1 g/dl (33.0-37.0); MEAN PLATELET VOLUME 9.9 fl (9.6-12.3); PLATELET COUNT AUTOMATED 256 10*3/uL (130-400); RED BLOOD COUNT 2.46 10*6/uL (4.50-5.90); RED CELL DISTRI WIDTH 17.3 % (0-14.5); WHITE BLOOD COUNT 8.3 10*3/uL (4.8-10.8)
[2017-03-03 14:33] LABS: BILIRUBIN NEGATIVE (NEGATIVE); BLOOD 2+ (NEGATIVE); CLARITY SL CLOUDY (CLEAR); COLOR YELLOW (YELLOW); GLUCOSE NEGATIVE (NEGATIVE); KETONE NEGATIVE (NEGATIVE); LEUKO ESTERASE NEGATIVE (NEGATIVE); NITRITE NEGATIVE (NEGATIVE); SPECIFIC GRAVITY 1.025 (1.005-1.030); UROBILINOGEN 0.2 E.U./dl (0.2-1.0)
[2017-03-03 14:38] LABS: ALBUMIN 2.3 gm/dl (3.1-4.5); CREATININE 2.89 mg/dL (0.70-1.30); POTASSIUM 5.5 mmol/L (3.5-5.1); TOTAL PROTEIN 8.3 gm/dL (6.4-8.2)
[2017-03-03 14:43] LABS: BACTERIA 1+; COARSE GRANULAR CAST 0-2
[2017-03-03 14:44] LABS: RBC 41-50 rbc/hpf (0-2)
[2017-03-03 14:45] LABS: BASOPHILS 5 % (0-1); TOTAL CELLS COUNTED 100 #CELLS
[2017-03-03 14:46] LABS: PLATELET SUFFICIENCY NORMAL (NORMAL); ROULEAUX SLIGHT
[2017-03-03 15:31] LABS: ACT PARTIAL THROMBO TIME 28.7 SECONDS (20.8-31.5); INTERNATIONAL NORM RATIO 1.8 (2.0-3.5)
[2017-03-03 19:13] LABS: HEMOGLOBIN 8.8 g/dl (14.0-18.0)
[2017-03-04] VITALS (13 sets, daily range): BP systolic 60–111; BP diastolic 27–74
[2017-03-04 05:08] LABS: HEMATOCRIT 22.8 % (42.0-52.0); HEMOGLOBIN 7.7 g/dl (14.0-18.0); MEAN CELL VOLUME 87.4 fl (80.0-94.0); MEAN CORPUSCULAR HGB 29.5 pg (27.0-31.0); MEAN CORPUSCULAR HGB CONC 33.8 g/dl (33.0-37.0); MEAN PLATELET VOLUME 10.3 fl (9.6-12.3); PLATELET COUNT AUTOMATED 265 10*3/uL (130-400); RED BLOOD COUNT 2.61 10*6/uL (4.50-5.90); WHITE BLOOD COUNT 9.4 10*3/uL (4.8-10.8)
[2017-03-04 05:19] LABS: INTERNATIONAL NORM RATIO 1.8 (2.0-3.5)
[2017-03-04 05:21] LABS: CREATININE 3.65 mg/dL (0.70-1.30)
[2017-03-04 05:26] LABS: PHOSPHOROUS 8.6 mg/dL (2.5-4.9)
[2017-03-04 05:37] LABS: TOTAL CELLS COUNTED 100 #CELLS
[2017-03-04 05:38] LABS: PLATELET SUFFICIENCY NORMAL (NORMAL); POLYCHROMASIA SLIGHT; ROULEAUX MODERATE; THYROID STIM HORMONE (HS) 4.35 uIU/ml (0.358-4.75)
[2017-03-04 05:41] LABS: POTASSIUM 6.9 mmol/L (3.5-5.1)
[2017-03-04 07:40] LABS: VITAMIN D, 25-HYDROXY 37.4 ng/mL (30-100)
[2017-03-04] MEDS ORDERED: VANCOMYCIN1 GM/1002 IV (08:20)
[2017-03-04] MEDS ORDERED: MERREM IV1 GM IV (08:20)
== END 2017-03-04 11:05 | disposition short-term general hospital (02) | DRG 871 ==
LOC: ED 13:50 → EDHOLD 16:37 → ICCU 16:50
PROVIDERS: Emergency Medicine; Family Medicine; Internal Medicine
PROC: 30233N1 Transfusion of Nonautologous Red Blood Cells into Peripheral Vein, Percutaneous Approach (ICD-10-PCS; principal; 2017-03-03)
DX: A41.9 Sepsis, unspecified organism (principal); R65.21 Severe sepsis with septic shock; N17.0 Acute kidney failure with tubular necrosis; E43 Unspecified severe protein-calorie malnutrition; K66.1 Hemoperitoneum; J96.10 Chronic respiratory failure, unspecified whether with hypoxia or hypercapnia; I95.9 Hypotension, unspecified; N18.4 Chronic kidney disease, stage 4 (severe); D68.9 Coagulation defect, unspecified; D62 Acute posthemorrhagic anemia; C34.90 Malignant neoplasm of unspecified part of unspecified bronchus or lung; E87.1 Hypo-osmolality and hyponatremia; S37.012A Minor contusion of left kidney, initial encounter; R58 Hemorrhage, not elsewhere classified; E87.5 Hyperkalemia; M19.90 Unspecified osteoarthritis, unspecified site; J44.9 Chronic obstructive pulmonary disease, unspecified; M10.9 Gout, unspecified; I12.9 Hypertensive chronic kidney disease with stage 1 through stage 4 chronic kidney disease, or unspecified chronic kidney disease; Z96.642 Presence of left artificial hip joint; X58.XXXA Exposure to other specified factors, initial encounter; K59.00 Constipation, unspecified; E86.0 Dehydration; E87.8 Other disorders of electrolyte and fluid balance, not elsewhere classified; R73.9 Hyperglycemia, unspecified; R31.9 Hematuria, unspecified; N40.0 Benign prostatic hyperplasia without lower urinary tract symptoms; Z85.118 Personal history of other malignant neoplasm of bronchus and lung; Z88.6 Allergy status to analgesic agent; Z88.8 Allergy status to other drugs, medicaments and biological substances; Z79.899 Other long term (current) drug therapy; Z79.01 Long term (current) use of anticoagulants; Z79.891 Long term (current) use of opiate analgesic; Z82.49 Family history of ischemic heart disease and other diseases of the circulatory system; Y93.89 Activity, other specified; Y92.89 Other specified places as the place of occurrence of the external cause; Y99.8 Other external cause status; Z99.81 Dependence on supplemental oxygen; Z68.23 Body mass index [BMI] 23.0-23.9, adult